=== PATIENT | male | born 1995 | race Caucasian/White ===

== ENCOUNTER 2021-01-14 15:27 | Emergency (ER) | payer BC ==
[2021-01-14 15:47] VITALS: BP 103/60; PULSE 74; TEMP 98.9; BMI 20.5
== END 2021-01-14 17:16 | disposition home or self-care (01) ==
LOC: FER 15:27
DX: G44.219 Episodic tension-type headache, not intractable (principal)
CPT/HCPCS: 70450-TC; 99284-25; C9803; U0003; U0005